=== PATIENT | male | born 1945 | race Caucasian/White ===

== ENCOUNTER → 2016-03-30 | Outpatient (CLI) | payer MEDICARE, OTHER ==
--- NOTE | 2016-03-30 14:55 | FL ---
EXAMINATION TYPE: FL barium swallow w video DATE OF EXAM: 03/30/2016 2:05 PM COMPARISON: NONE HISTORY: Parkinson's, chronic cough TECHNIQUE: Fluoroscopy. FINDINGS: Fluoroscopic guidance was provided for the procedure performed in conjunction with the [facility] pathology department. Please see complete report forthcoming from the Speech Pathology departmen t. Various consistencies from thin liquid to solids were administered. Some minimal transient penetration was present with thin liquids Pooling was within the vallecula. There is some delay in propulsion of the bolus. IMPRESSION: 1. Minimal penetration with thin liquids. No aspiration occurred during the exam. 2. Slow propulsion of the bolus and pooling within the vallecula.
== END | disposition home or self-care (01) ==
LOC: RADFLMAIN 13:42
PROVIDERS: ATTEND Otolaryngology
DX: R13.10 Dysphagia, unspecified (principal)
CPT/HCPCS: 74230

== ENCOUNTER → 2017-01-23 | Outpatient (CLI) | payer MEDICARE, OTHER ==
--- NOTE | 2017-01-23 11:52 | FL ---
EXAMINATION TYPE: FL barium swallow w video DATE OF EXAM: 01/23/2017 MODIFIED SWALLOW / DEGLUTITION STUDY CLINICAL HISTORY: Dysphagia. TECHNIQUE: Deglutition study is performed utilizing thin liquid barium, honey and nectar thick liqui d barium, barium thick applesauce, and barium coated cracker. COMPARISON: None. FINDINGS: The oral and pharyngeal phases show satisfactory initiation and propagation with all modali ties tested. Normal mastication is seen with solid modalities tested. There is no evidence of penet ration or aspiration with any modality tested. Moderate to severe posterior pharyngeal, vallecular an d piriform sinus residue was appreciated with all consistencies other than barium thick applesauce. IMPRESSION: 1. Moderate to severe posterior pharyngeal, vallecular and piriform sinus residuals. 2. No evidence of laryngeal penetration or aspiration. 3. Please refer to speech therapist notes for further details if necessary.
== END | disposition home or self-care (01) ==
LOC: RADFLMAIN 11:05
PROVIDERS: ATTEND Otolaryngology
DX: R13.10 Dysphagia, unspecified (principal); G20 Parkinson's disease
CPT/HCPCS: 74230

== ENCOUNTER 2018-02-20 07:37 | Day surgery (SDC) | payer MEDICARE, OTHER ==
[~2018-02-20 07:37] MED LIST: PREMYELOGRAM MEDICATION REVIEW 1 EACH MISC PO ONE
[2018-02-20] MEDS ORDERED: PREMYELOGRAM MEDICATION REVIEW 1 EACH MISC PO ONE (08:38)
[2018-02-20 08:43] LABS: Mean Platelet Volume 11.2
[2018-02-20 08:56] LABS: Platelet Count 119 k/uL (150-450)
[2018-02-20 09:02] LABS: Prothrombin Time 10.9 sec (9.0-12.0)
== END 2018-02-20 09:50 | disposition home or self-care (01) ==
LOC: RADPROMAIN 07:37
PROVIDERS: ATTEND Physical Medicine & Rehabilitation
DX: M47.817 Spondylosis without myelopathy or radiculopathy, lumbosacral region (principal); Z53.8 Procedure and treatment not carried out for other reasons
CPT/HCPCS: 85049; 85610

== ENCOUNTER 2018-02-22 07:52 | Day surgery (SDC) | payer MEDICARE, OTHER ==
[2018-02-22] MEDS ORDERED: DIAZEPAM 5 MG TAB PO STA (08:49)
[2018-02-22 09:04] VITALS: TEMP 97.5
--- NOTE | 2018-02-22 10:30 | CT ---
EXAMINATION TYPE: CT lumbar spine w con, FL myelogram lumbosacral DATE OF EXAM: 02/22/2018 10:15 AM HISTORY: Lower extremity pain and numbness Informed consent was obtained and all the patient's questions were answered. The L3-L4 level was loc alized under fluoroscopy. Standard sterile technique was utilized as well as appropriate local anest hesia 1% Lidocaine and sodium bicarbonate. Spinal needle was introduced into the thecal sac under fl uoroscopic guidance and 15 cc of Omni 300 was injected. The patient tolerated the procedure well an d left the department in stable condition. CT myelography is to follow. IMPRESSION: Successful myelography lumbar spine EXAMINATION TYPE: CT lumbar spine w con, FL myelogram lumbosacral DATE OF EXAM: 02/22/2018 COMPARISON: None HISTORY: Spondylosis lumbosacral region CT DLP: 1068 mGycm CONTRAST: Unenhanced CT of the lumbar spine is performed with IV Contrast, patient injected with 15 cc mL of Is ovue M300. There is a moderately severe rotoscoliosis convex to the left. L1-L2: Severe disc desiccation with vacuum disks noted. Endplate sclerosis noted. Ventral and dorsal spondylosis. Posterior disc bulge with encapsulating spur resulting in disc endplate complex. There i s a [id number]-gfuborvf central stenosis. L2-L3: There is L2-3 fusion noted. Ventral and dorsal spondylosis. Effacement ventral thecal sac with right lateral recess stenosis and right foraminal encroachment. L3-L4: Moderate disc space narrowing noted with the vacuum disc identified. Posterior disc bulge wit h mild effacement ventral thecal sac. No evidence for disc herniation or protrusion. No central steno sis. Mild right foraminal encroachment. L4-L5: Grade 1 anterolisthesis L4 and L5. Pedicular screws in place. Anterolisthesis measures 6 mm. D istortion of the thecal sac. Lumbar laminectomy changes noted. No evidence for central stenosis. Neur al foramina are patent. L5-S1: Normal disc space height. No disc herniation protrusion or central stenosis. No facet joint arthropathy. No evidence for foraminal encroachment. No paraspinal masses are identified. Lumbar segments are free if fracture. IMPRESSION: 1. Severe multilevel degenerative disc disease and spondylosis with endplate sclerosis. 2. Owyp-oe-ylnlvdpg central stenosis L1-2. Right lateral recess stenosis L2-3. 3. Postoperative changes as noted.
[2018-02-22 11:42] VITALS: RESP 16
[2018-02-22 11:50] VITALS: PULSE 55
[2018-02-22 12:17] VITALS: BP 166/82
== END 2018-02-22 12:17 | disposition home or self-care (01) ==
LOC: RADPROMAIN 07:52
PROVIDERS: ATTEND Physical Medicine & Rehabilitation
DX: M47.817 Spondylosis without myelopathy or radiculopathy, lumbosacral region (principal); M48.061 Spinal stenosis, lumbar region without neurogenic claudication; I10 Essential (primary) hypertension; G20 Parkinson's disease; I51.9 Heart disease, unspecified; Z79.01 Long term (current) use of anticoagulants; Z79.02 Long term (current) use of antithrombotics/antiplatelets; Z79.899 Other long term (current) drug therapy; M96.1 Postlaminectomy syndrome, not elsewhere classified; Z98.1 Arthrodesis status; Z86.718 Personal history of other venous thrombosis and embolism
CPT/HCPCS: 62304; 72132; Q9967

== ENCOUNTER 2018-08-07 10:40 | Day surgery (SDC) | payer MEDICARE, OTHER ==
[2018-07-10 16:01] VITALS: BMI 18.6
[~2018-08-07 10:40] MED LIST changes: +LACTATED RINGERS 1,000 ML IV SCH; -PREMYELOGRAM MEDICATION REVIEW 1 EACH MISC PO ONE
[2018-08-07 11:14] VITALS: RESP 16; TEMP 98.6
[2018-08-07] MEDS ORDERED: LIDOCAINE 1% 20 ML VIAL (10MG/ML) FOR IV START INTRADERMA ONE (11:22)
[2018-08-07] MEDS ORDERED: PROPOFOL 10 MG/ML 20 ML VIAL IV ONE (12:43)
--- NOTE | 2018-08-07 13:03 | P.PCN ---
Date of Procedure: 08/07/18 Procedure(s) Performed: BRIEF HISTORY: Patient is a 73-year-old pleasant white male, scheduled for an elective colonoscopy as a part of screening for colorectal neoplasia. PROCEDURE PERFORMED: Colonoscopy. PREOPERATIVE DIAGNOSIS: Screening for colon cancer. IV sedation per Anesthesia. PROCEDURE: After informed consent was obtained, the patient, was brought into the endoscopy unit. IV sedation was administered by Anesthesia under continuous monitoring. Digital rectal examination was normal. Initially the Olympus CF-160 flexible video colonoscope was then inserted in the rectum, gradually advanced into the cecum without any difficulty. Careful examination was performed as the scope was gradually being withdrawn. Ileocecal valve and the appendiceal orifice were visualized and appeared normal. Prep was fair.. Mucosa of the cecum, ascending colon, transverse colon, descending colon, sigmoid colon, and rectum appeared normal. Retroflexion was performed in the rectum and small internal hemorrhoids were seen. The patient tolerated the procedure well. IMPRESSION: Normal-appearing colon from rectum to cecum with no evidence of colorectal neoplasia. RECOMMENDATIONS: Findings of this examination were discussed with the patient as well as his family. He was advised to have a repeat screening colonoscopy in 10 years.
[2018-08-07 13:25] VITALS: BP 111/58; PULSE 52
== END 2018-08-07 13:56 | disposition home or self-care (01) ==
LOC: ORWHC2ENDO 10:40
PROVIDERS: ATTEND Internal Medicine Gastroenterology
DX: Z12.11 Encounter for screening for malignant neoplasm of colon (principal); K64.8 Other hemorrhoids; I10 Essential (primary) hypertension; G20 Parkinson's disease; Z79.899 Other long term (current) drug therapy; Z79.01 Long term (current) use of anticoagulants; Z79.02 Long term (current) use of antithrombotics/antiplatelets; Z95.810 Presence of automatic (implantable) cardiac defibrillator
CPT/HCPCS: J2704; G0121; 45378

== ENCOUNTER 2018-12-14 13:51 | Inpatient (IN) | payer MEDICARE, OTHER ==
[2018-12-14] MEDS ORDERED: HYDROmorphone 0.5 MG/0.5 ML SYRINGE IVP PRN (14:10)
[2018-12-14] MEDS ORDERED: HYDROcodone/APAP 5-325MG 1 EACH TAB PO PRN (14:10)
[2018-12-14 18:00] LABS: African American GFR (CKD) >90 (>60 ml/min/1.73 sqM); Anion Gap 5 mmol/L; Blood Urea Nitrogen 14 mg/dL (9-20); Calcium 8.7 mg/dL (8.4-10.2); Carbon Dioxide 26 mmol/L (22-30); Chloride 106 mmol/L (98-107); Glucose 109 mg/dL (74-99); Potassium 3.9 mmol/L (3.5-5.1); Sodium 137 mmol/L (137-145)
[2018-12-14 18:02] LABS: INR 1.1 (<1.2); Partial Thromboplastin Time 27.1 sec (22.0-30.0); Prothrombin Time 11.2 sec (9.0-12.0)
[2018-12-14 18:09] LABS: Basophils % (A) 0 %; Eosinophils # (A) 0.2 k/uL (0-0.7); Eosinophils % (A) 2 %; HCT 44.1 % (39.0-53.0); HGB 14.2 gm/dL (13.0-17.5); Lymphocytes # (A) 0.8 k/uL (1.0-4.8); Lymphocytes % (A) 9 %; MCH 32.3 pg (25.0-35.0); MCHC 32.2 g/dL (31.0-37.0); MCV 100.2 fL (80.0-100.0); Mean Platelet Volume 7.4; Monocytes # (A) 0.5 k/uL (0-1.0); Monocytes % (A) 6 %; Neutrophils # (A) 7.3 k/uL (1.3-7.7); Neutrophils % (A) 82 %; Platelet Count 101 k/uL (150-450); RDW 14.4 % (11.5-15.5); WBC 8.9 k/uL (3.8-10.6)
[2018-12-14] MEDS ORDERED: ACETAMINOPHEN TAB 325 MG TAB PO PRN (18:27)
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
[2018-12-14] MEDS: HEPARIN SOD,PORK IN 0.45% NACL 25,000 UNIT in 0.45% NACL 1 250ML.BAG IV SCH (18:58)
[2018-12-14] MEDS: SODIUM CHLORIDE 0.9% 1,000 ML IV SCH (18:59)
[2018-12-14 20:06] LABS: Appearance,Urine Clear (Clear); Bilirubin,Urine Negative (Negative); Blood,Urine Negative (Negative); Color,Urine Yellow; Glucose,Urine (UA) Negative (Negative); Ketones,Urine Negative (Negative); Leukocyte Esterase,Urine Negative (Negative); Nitrite,Urine Negative (Negative); Protein,Urine Negative (Negative); Specific Gravity,Urine 1.007 (1.001-1.035); Urobilinogen,Urine <2.0 mg/dL (<2.0)
[2018-12-14] MEDS: ENTACAPONE 200 MG TAB PO SCH (20:09)
[2018-12-14] MEDS: GLYCOPYRROLATE 1 MG TAB PO SCH (20:09)
[2018-12-14] MEDS: CARBIDOPA-LEVODOPA ER 50-200MG 1 EACH TABLET.ER PO SCH (20:09)
[2018-12-14] MEDS: PRAMIPEXOLE 0.5 MG TAB PO SCH (20:09)
[2018-12-14] MEDS: Rivastigmine Tartrate 1.5 MG Cap PO SCH (20:10)
--- NOTE | 2018-12-14 20:18 | XR ---
EXAMINATION TYPE: XR chest 1V DATE OF EXAM: 12/14/2018 COMPARISON: NONE HISTORY: Preoperative evaluation TECHNIQUE: Single frontal view of the chest is obtained. FINDINGS: There is no focal air space opacity, pleural effusion, or pneumothorax seen. Subsegmental atelectasis at the left lung base. The cardiac silhouette size is within normal limits. Single-chambe r cardiac pacing device with right chest wall Corpak. The osseous structures are intact. IMPRESSION: No acute process.
[2018-12-15] MEDS: ENTACAPONE 200 MG TAB PO SCH ×8 (00:06→20:48)
[2018-12-15] MEDS: PRAMIPEXOLE 0.5 MG TAB PO SCH ×7 (00:06→20:48)
[2018-12-15] MEDS ORDERED: HEPARIN SODIUM,PORCINE 5,000 UNIT/ML 1 ML VIAL IV PRN (02:57)
--- NOTE | 2018-12-15 08:22 | XR ---
EXAMINATION TYPE: XR Hip LT and AP Pelvis , 3 VIEWS DATE OF EXAM ORDERED: 12/15/2018 HISTORY: pain. COMPARISON: None. FINDINGS: There has been a previous interpedicular fusion of the lower lumbar spine. There appears to also been a bony fusion of the lower lumbar spine. Both femoral heads are nonspherical. There is a s ubcapital fracture of the left hip. No definite pelvic fracture is seen. IMPRESSION: 1. SUBCAPITAL FRACTURE OF THE LEFT HIP. 2. FEMOROACETABULAR IMPINGEMENT SYNDROME. 3. POSTSURGICAL CHANGE. CODE A: INITIAL ENCOUNTER FOR CLOSED FRACTURE.
[2018-12-15] MEDS: SODIUM CHLORIDE 0.9% 1,000 ML IV SCH ×2 (08:51→23:01)
[2018-12-15] MEDS: CARBIDOPA-LEVODOPA ER 50-200MG 1 EACH TABLET.ER PO SCH ×2 (08:57→18:04)
[2018-12-15] MEDS: GLYCOPYRROLATE 1 MG TAB PO SCH (08:58)
[2018-12-15] MEDS ORDERED: METOPROLOL SUCCINATE (ER) 25 MG TAB.ER.24H PO SCH (09:00)
[2018-12-15] MEDS ORDERED: LISINOPRIL 20 MG TAB PO SCH (09:00)
[2018-12-15] MEDS ORDERED: ISOSORBIDE MONONITRATE ER 30 MG TAB.ER.24H PO SCH (09:00)
[2018-12-15] MEDS ORDERED: ATORVASTATIN 40 MG TAB PO SCH (09:00)
[2018-12-15] MEDS ORDERED: TAMSULOSIN 0.4 MG CAP.ER.24H PO SCH (09:00)
[2018-12-15] MEDS: Rivastigmine Tartrate 1.5 MG Cap PO SCH (09:00)
--- NOTE | 2018-12-15 09:15 | P.CRDCN ---
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 The patient fell a few days ago without losing his consciousness. He landed over the left hip. No symptoms of chest pain or chest discomfort, heart racing or fluttering, or dizziness around episode. He was seen by orthopedic surgeon yesterday and the plan is to proceed with left hip surgery in the next 24 hours. When I talk to the patient, he is s omewhat poor historian. He stated that he does have coronary artery disease and he underwent stenting with unknown details at this point and that was performed long time ago. He stated that he also does have a device which seems to be an AICD. The patient stated that he underwent in the past despite surgery and that was complicated by cardiac arrest and since then he had an AICD placed in. The patient does follow with a resin shaver out of the town and the details of his medical history are unavailable at this point. He denies any symptoms of chest pain or chest discomfort at this point, shortness of breath, dizziness, or feeling of heart racing or fluttering. No EKG available in the chart and would get an EKG later on today. No cardiac enzymes were checked as well. His blood work overall seems to be unremarkable. The Eliquis was stopped and currently the patient is on heparin IV. The plan is to proceed with surgery in the next 24 hours. Past Medical History Past Medical History: Blood Disorder, Cancer, Deep Vein Thrombosis (DVT), Hyp erlipidemia, Hypertension, Osteoarthritis (OA), Prostate Disorder, Thyroid Disorder, Vascular Disorder Additional Past Medical History / Comment(s): cardiac arrest 2011 post op after back surgery, dvt x2, factor V-clotting disorder, skin cancer to forehead History of Any Multi-Drug Resistant Organisms: None Reported Past Surgical History: AICD, Back Surgery, Heart Catheterization With Stent Additional Past Surgical History / Comment(s): spinal stenosis 3 screws and box, Past Anesthesia/Blood Transfusion Reactions: Previous Problems w/ Anesthesia, Motion Sickness Additional Past Anesthesia/Blood Transfusion Reaction / Comment(s): has blood clot post op after back surgery that caused cardiac arrest(spouse states because they did not use stockings or venodynes) Date of Last Stent Placement:: 05/03/17 Type of Cardiac Device: AICD Device Placement Date:: 2013 Additional Psychological History / Comment(s): dementia - Past Family History Mother Family Medical History: Blood Disorder, Deep Vein Thrombosis (DVT) Additional Family Medical History / Comment(s): factor V Medications and Allergies Home Medications Medication Instructions Recorded Confirmed Type Atorvastatin [Lipitor] 40 mg PO DAILY 02/12/18 12/14/18 History Glycopyrrolate [Robinul] 1 mg PO BID 02/12/18 12/14/18 History Rivastigmine Tartrate 1.5 mg PO BID 02/20/18 12/14/18 History [Rivastigmine] Apixaban [Eliquis] 5 mg PO BID 07/10/18 12/14/18 History Carbidopa-Levodopa ER 50-200Mg 1 tab PO BID 07/10/18 12/14/18 History [Sinemet ER 50-200] Entacapone [Comtan] 200 mg PO Q3HR 07/10/18 12/14/18 History Isosorbide Mononitrate [Isosorbide 30 mg PO QAM 07/10/18 12/14/18 History Mononitrate ER] Pramipexole [Mirapex] 0.5 mg PO Q4HR 07/10/18 12/14/18 History tiZANidine [Zanaflex] 2 mg PO BID@0600,1400 07/10/18 12/14/18 History Metoprolol Succinate (ER) [Toprol 25 mg PO DAILY 12/14/18 12/14/18 History Xl] Ramipril 10 mg PO DAILY 12/14/18 12/14/18 History Tamsulosin HCl [Flomax] 0.4 mg PO DAILY 12/14/18 12/14/18 History predniSONE See Taper PO DAILY 12/14/18 12/14/18 History Allergies Allergy/AdvReac Type Severity Reaction Status Date / Time No Known Allergies Allergy Verified 12/14/18 17:52 Physical Exam Vitals: Vital Signs Temp Pulse Resp BP Pulse Ox 12/15/18 01:27 98.0 F 60 18 163/90 97 12/14/18 19:32 98.5 F 60 14 157/83 95 12/14/18 17:05 98.2 F 60 17 176/90 98 Intake and Output 12/14/18 12/15/18 12/15/18 22:59 06:59 14:59 Intake Total 118 64.452 Output Total 450 Balance 118 -385.548 Intake: Intake, IV Titration 64.452 Amount Heparin Sod,Pork in 0.45% 64.452 NaCl 25,000 unit In 0.45 % NaCl 1 250ml.bag @ 12 UNITS/KG/HR 7.86 mls/hr IV .Q24H [facility] Rx#: [id number] Oral 118 Output: Urine 450 Other: Voiding Method Urinal Weight 65.503 kg - Constitutional General appearance: no acute distress - Respiratory Respiratory: bilateral: CTA - Cardiovascular Rhythm: regular Heart sounds: normal: S1, S2 Results 12/14/18 17:32 12/14/18 17:32 Coagulation 12/14/18 12/15/18 12/15/18 Range/Units 17:32 01:31 08:30 PT 11.2 (9.0-12.0) sec APTT 27.1 37.5 H 54.6 H (22.0-30.0) sec CBC 12/14/18 Range/Units 17:32 WBC 8.9 (3.8-10.6) k/uL RBC 4.40 (4.30-5.90) m/uL Hgb 14.2 (13.0-17.5) gm/dL Hct 44.1 (39.0-53.0) % Plt Count 101 L (150-450) k/uL Comprehensive Metabolic Panel 12/14/18 Range/Units 17:32 Sodium 137 (137-145) mmol/L Potassium 3.9 (3.5-5.1) mmol/L Chloride 106 (98-107) mmol/L Carbon Dioxide 26 (22-30) mmol/L BUN 14 (9-20) mg/dL Creatinine 0.53 L (0.66-1.25) mg/dL Glucose 109 H (74-99) mg/dL Calcium 8.7 (8.4-10.2) mg/dL Current Medications Generic Name Dose Route Start Last Admin Trade Name Freq PRN Reason Stop Dose Admin Acetaminophen 650 mg 12/14/18 18:27 Tylenol Tab PO Q4HR PRN Pain Hydrocodone Bitart/Acetaminophen 1 each 12/14/18 14:10 [place] 5-325 PO Q4HR PRN Mild Pain Hydrocodone Bitart/Acetaminophen 2 each 12/14/18 14:10 [place] 5-325 PO Q4HR PRN Moderate Pain Atorvastatin Calcium 40 mg 12/15/18 09:00 12/15/18 08:56 Lipitor PO 40 mg DAILY MARY Administration Carbidopa/Levodopa 1 each 12/14/18 21:00 12/15/18 08:57 Sinemet Er 50-200 PO 1 each BID MARY Administration Entacapone 200 mg 12/14/18 21:00 12/15/18 03:18 Comtan PO Not Given Q3HR MARY Glycopyrrolate 1 mg 12/14/18 21:00 12/15/18 08:58 Robinul PO 1 mg BID MARY Administration Heparin Sodium (Porcine) 0 unit 12/15/18 02:57 12/15/18 03:09 Heparin IV 3,250 unit PER PROTOCOL PRN Administration Low PTT Protocol Hydromorphone HCl 0.5 mg 12/14/18 14:10 Dilaudid IVP Q4HR PRN Moderate Pain Sodium Chloride 1,000 mls @ 65 mls/hr 12/14/18 14:15 12/15/18 08:51 Saline 0.9% IV Not Given .[id number] MARY Heparin Sodium/Sodium Chloride 250 mls @ 7.86 mls/hr 12/14/18 18:30 12/15/18 03:10 25,000 unit/ Sodium Chloride IV 15 units/kg/hr .Q24H MARY 9.825 mls/hr Titration Protocol 12 UNITS/KG/HR Isosorbide Mononitrate 30 mg 12/15/18 09:00 12/15/18 08:56 Imdur PO 30 mg QAM MARY Administration Lisinopril 40 mg 12/15/18 09:00 12/15/18 08:56 Zestril PO 40 mg DAILY MARY Administration Metoprolol Succinate 25 mg 12/15/18 09:00 12/15/18 08:56 Toprol Xl PO 25 mg DAILY MARY Administration Rivastigmine 1.5 mg 12/14/18 21:00 12/15/18 09:00 Tartrate 1.5 Mg Cap PO 1.5 mg BID MARY Administration Pramipexole Dihydrochloride 0.5 mg 12/14/18 20:00 12/15/18 08:58 Mirapex PO 0.5 mg Q4HR MARY Administration Tamsulosin HCl 0.4 mg 12/15/18 09:00 12/15/18 08:56 Flomax PO 0.4 mg DAILY MARY Administration Tizanidine HCl 2 mg 12/15/18 06:00 12/15/18 08:59 Zanaflex PO 2 mg BID@0600,1400 MARY Administration Intake and Output 12/14/18 12/15/18 12/15/18 22:59 06:59 14:59 Intake Total 118 64.452 Output Total 450 Balance 118 -385.548 Intake: Intake, IV Titration 64.452 Amount Heparin Sod,Pork in 0.45% 64.452 NaCl 25,000 unit In 0.45 % NaCl 1 250ml.bag @ 12 UNITS/KG/HR 7.86 mls/hr IV .Q24H MARY Rx#: [id number] Oral 118 Output: Urine 450 Other: Voiding Method Urinal Weight 65.503 kg 12/14/18 17:32 12/14/18 17:32 Assessment and Plan Assessment: Assessment #1 status post fall with left hip fracture #2 history of coronary artery disease and prior angioplasty and stenting with unknown details #3 history of recurrent DVT #4 factor V Leiden deficiency #5 status post AICD for history of "cardiac arrest" #6 multiple comorbid conditions Plan #1 agree about keeping the patient on heparin IV at this point until he goes for surgery #2 continue the current medical regimen #3 obtain an echocardiogram to establish LV function. I would hold on any surg ernie at this point daily at least have an idea about the ejection fraction #4 rule out acute coronary event. I will obtain serial cardiac enzymes #5 obtain the previous medical records from his prior resin shaver #6 follow-up with the patient Thank you for allowing us participate in his care
--- NOTE | 2018-12-15 09:51 | P.HPOR ---
History of Present Illness H&P Date: 12/15/18 This is a 73-year-old male who was transferred from [facility] for left hip fracture. Patient is seen and evaluated at bedside. Patient is a poor historian and there is no family present in the room. Patient's past medical history significant for factor V Leiden, Parkinson's disease, dementia, history of skin cancer, history of DVT 2, history of cardiac arrest, hypertension, hyperlipidemia, osteoarthritis, prostate disorder and thyroid disorder. Patient normally takes Eliquis twice a day, but this has been held since , per the patient's chart. The patient has a history of a fall on 12/12/2018 and was admitted to [facility] for left hip fracture. Patient denies any pain in his left hip this morning. Patient denies any fever/chills, numbness, weakness, tingling, abdominal pain, shortness of breath or chest pain. Review of Systems See HPI. Past Medical History Past Medical History: Blood Disorder, Cancer, Deep Vein Thrombosis (DVT), Hyperlipidemia, Hypertension, Osteoarthritis (OA), Prostate Disorder, Thyroid Disorder, Vascular Disorder Additional Past Medical History / Comment(s): cardiac arrest 2011 post op after back surgery, dvt x2, factor V-clotting disorder, skin cancer to forehead History of Any Multi-Drug Resistant Organisms: None Reported Past Surgical History: AICD, Back Surgery, Heart Catheterization With Stent Additional Past Surgical History / Comment(s): spinal stenosis 3 screws and box, Past Anesthesia/Blood Transfusion Reactions: Previous Problems w/ Anesthesia, Motion Sickness Additional Past Anesthesia/Blood Transfusion Reaction / Comment(s): has blood clot post op after back surgery that caused cardiac arrest(spouse states because they did not use stockings or venodynes) Date of Last Stent Placement:: 05/03/17 Type of Cardiac Device: AICD Device Placement Date:: 2013 Additional Psychological History / Comment(s): dementia - Past Family History Mother Family Medical History: Blood Disorder, Deep Vein Thrombosis (DVT) Additional Family Medical History / Comment(s): factor V Medications and Allergies Home Medications Medication Instructions Recorded Confirmed Type Atorvastatin [Lipitor] 40 mg PO DAILY 02/12/18 12/14/18 History Glycopyrrolate [Robinul] 1 mg PO BID 02/12/18 12/14/18 History Rivastigmine Tartrate 1.5 mg PO BID 02/20/18 12/14/18 History [Rivastigmine] Apixaban [Eliquis] 5 mg PO BID 07/10/18 12/14/18 History Carbidopa-Levodopa ER 50-200Mg 1 tab PO BID 07/10/18 12/14/18 History [Sinemet ER 50-200] Entacapone [Comtan] 200 mg PO Q3HR 07/10/18 12/14/18 History Isosorbide Mononitrate [Isosorbide 30 mg PO QAM 07/10/18 12/14/18 History Mononitrate ER] Pramipexole [Mirapex] 0.5 mg PO Q4HR 07/10/18 12/14/18 History tiZANidine [Zanaflex] 2 mg PO BID@0600,1400 07/10/18 12/14/18 History Metoprolol Succinate (ER) [Toprol 25 mg PO DAILY 12/14/18 12/14/18 History Xl] Ramipril 10 mg PO DAILY 12/14/18 12/14/18 History Tamsulosin HCl [Flomax] 0.4 mg PO DAILY 12/14/18 12/14/18 History predniSONE See Taper PO DAILY 12/14/18 12/14/18 History Allergies Allergy/AdvReac Type Severity Reaction Status Date / Time No Known Allergies Allergy Verified 12/14/18 17:52 Physical Examination On exam patient is resting comfortably in bed in no acute distress. There is no deformity of the left lower extremity. Skin is intact and there is no erythema or ecchymosis. Range of motion of the left lower extremity is limited due to pain and injury. Patient is no pain with range of motion of the right lower extremity. Calves are soft and nontender to palpation. Dorsalis pedis pulses are 2+ bilaterally. Sensation intact. Neurovascular status circulatory status are intact. Exams of the head, neck and bilateral upper extremities are within normal limits. Results X-rays of the left hip and pelvis dated 12/15/2018 show a fracture of the left femoral neck. - Labs Labs: Abnormal Lab Results - Last 24 Hours (Table) 12/14/18 12/14/18 12/15/18 Range/Units 17:32 17:32 01:31 MCV 100.2 H (80.0-100.0) fL Plt Count 101 L (150-450) k/uL Lymphocytes # 0.8 L (1.0-4.8) k/uL APTT 37.5 H (22.0-30.0) sec Creatinine 0.53 L (0.66-1.25) mg/dL Glucose 109 H (74-99) mg/dL H & H 12/14/18 Range/Units 17:32 Hgb 14.2 (13.0-17.5) gm/dL Hct 44.1 (39.0-53.0) % Coagulation 12/14/18 Range/Units 17:32 INR 1.1 (<1.2) Result Diagrams: 12/14/18 17:32 12/14/18 17:32 Assessment and Plan (1) Closed left hip fracture Current Visit: Yes Status: Acute Code(s): S72.002A - FRACTURE OF UNSP PART OF NECK OF LEFT FEMUR, INIT SNOMED Code(s): 962424549 (2) Factor V Leiden Current Visit: Yes Status: Acute Code(s): D68.51 - ACTIVATED PROTEIN C RESISTANCE SNOMED Code(s): 333633567 (3) Parkinsons disease Current Visit: Yes Status: Acute Code(s): G20 - PARKINSON'S DISEASE SNOMED Code(s): 70036807 Plan: 1. X-rays are reviewed showing left femoral neck fracture. 2. Patient is currently on a heparin drip for history of factor V Leiden. 3. Appreciate input from internal medicine, cardiology and hematology. 4. Continue pain control. 5. Nonweightbearing to the lower extremity. 6. Planning for left hip hemiarthroplasty pending medical clearance and patient consent.
[2018-12-15 10:16] LABS: Creatine Kinase MB 1.2 ng/mL (0.0-2.4)
--- NOTE | 2018-12-15 11:12 | P.PN ---
Progress Note - Text Progress Note Date: 12/15/18 Thanks for the consult. Full consult to be dictated Factor 5 leiden mutation DVT LLE 10 yrs ago On chronic AC, with warfarin, then with Eliquis Left hip fx, need for surgery Agree with IV heparin in this setting. Continue till about 2-4 hrs prior to surgery Post surgery use SCDs. Resume Eliquis as son as Ok with Ortho
[2018-12-15] MEDS ORDERED: CARBIDOPA-LEVODOPA 25-100 MG 1 EACH TAB PO SCH (12:00)
[2018-12-15] MEDS: CARBIDOPA-LEVODOPA 25-100 MG 1 EACH TAB PO SCH ×2 (13:28→15:30)
[2018-12-15] MEDS ORDERED: ENTACAPONE 200 MG TAB PO SCH (13:32)
[2018-12-15 14:46] LABS: Creatine Kinase 27 U/L (55-170)
[2018-12-15 14:53] LABS: Creatine Kinase MB 1.2 ng/mL (0.0-2.4); Troponin I <0.012 ng/mL (0.000-0.034)
--- NOTE | 2018-12-15 16:47 | P.PN ---
Subjective Progress Note Date: 12/15/18 Principal diagnosis: Follow-up for hip fracture Patient denied having any pain in the moment. No overnight events. No shortness of breath, nausea or vomiting. Objective - Vital Signs Vital signs: Vital Signs Temp 99.7 F H 12/15/18 14:31 Pulse 60 12/15/18 14:31 Resp 16 12/15/18 14:31 BP 96/60 12/15/18 14:31 Pulse Ox 97 12/15/18 14:31 Intake & Output 12/14/18 12/15/18 12/15/18 18:59 06:59 18:59 Intake Total 118 64.452 296 Output Total 450 250 Balance 118 -385.548 46 Weight 65.503 kg Intake: Intake, IV Titration 64.452 Amount Heparin Sod,Pork in 0.45% 64.452 NaCl 25,000 unit In 0.45 % NaCl 1 250ml.bag @ 12 UNITS/KG/HR 7.86 mls/hr IV .Q24H [facility] Rx#: [id number] Oral 118 296 Output: Urine 450 250 Other: Voiding Method Urinal Urinal - Exam Constitutional: No acute distress, conversant, pleasant Eyes:Anicteric sclerae, moist conjunctiva, no lid-lag, PERRLA, ENMT: Oropharynx clear, no erythema, exudates Neck: Supple, FROM, no masses, or JVD, No carotid bruits, No thyromegaly Lungs: Clear to auscultation, Clear to percussion, Normal respiratory effort, no accessory muscle use Cardiovascular: Heart regular in rate and rhythm, No murmurs, gallops, or rubs, No peripheral edema Abdominal: Soft, Nontender, no guarding, rebound or rigidity, Normoactive bowel sounds, No hepatomegaly, No splenomegaly, No palpable mass Skin: Normal temperature, tone, texture, turgor, no induration, No subcutaneous nodules, No rash, lesions, No ulcers Extremities: Motion limited in the left hip secondary to extreme pain. No digital cyanosis, No clubbing, Pedal pulses intact and symmetrical, Radial pulses intact and symmetrical, No calf tenderness Psychiatric: Alert and oriented to person, place and time, appropriate affect, intact judgement Neuro: Muscles Strength 5/5 in all 4 extremities, Sensation to light touch grossly present throughout, Cranial nerves II-XII grossly intact, no focal sensory deficits - Labs CBC & Chem 7: 12/14/18 17:32 12/14/18 17:32 Labs: Abnormal Lab Results - Last 24 Hours (Table) 12/14/18 12/14/18 12/15/18 Range/Units 17:32 17:32 01:31 MCV 100.2 H (80.0-100.0) fL Plt Count 101 L (150-450) k/uL Lymphocytes # 0.8 L (1.0-4.8) k/uL APTT 37.5 H (22.0-30.0) sec Creatinine 0.53 L (0.66-1.25) mg/dL Glucose 109 H (74-99) mg/dL Total Creatine Kinase (55-170) U/L 12/15/18 12/15/18 12/15/18 Range/Units 08:30 08:30 14:09 MCV (80.0-100.0) fL Plt Count (150-450) k/uL Lymphocytes # (1.0-4.8) k/uL APTT 54.6 H (22.0-30.0) sec Creatinine (0.66-1.25) mg/dL Glucose (74-99) mg/dL Total Creatine Kinase 28 L 27 L (55-170) U/L Assessment and Plan Plan: Acute left hip fracture Management per orthopedics Pain control with [place] when necessary Going for left hip surgery Sunday Preoperative evaluation Seen by cardiology Recommending echocardiogram, pending History of factor V Leiden deficiency previously on DOAC with Eliquis over the last 6 months after previously being on Coumadin Seen by cardiology as well as hematology, both advising heparin drip, heparin will be held few hours before surgery. Anticoagulation therapy to resume after surgery Chronic Hyperlipidemia, Hypertension, Osteoarthritis (OA) All stable Resume meds CODE STATUS: Full code Discussed care with patient Surrogate decision-maker: Anticipated discharge: 3 days Prophylaxis: Heparin
[2018-12-15] MEDS: RIVASTIGMINE TARTRATE 1.5 MG PO SCH (18:04)
[2018-12-15] MEDS: HEPARIN SOD,PORK IN 0.45% NACL 25,000 UNIT in 0.45% NACL 1 250ML.BAG IV SCH (20:47)
[2018-12-15] MEDS: MELATONIN 3 MG TABLET PO SCH (20:48)
[2018-12-15 21:10] LABS: Creatine Kinase 34 U/L (55-170)
[2018-12-15 21:23] LABS: Creatine Kinase MB 1.3 ng/mL (0.0-2.4); Troponin I <0.012 ng/mL (0.000-0.034)
--- NOTE | 2018-12-15 21:46 | P.CONS ---
History of Present Illness - Reason for Consult Consult date: 12/15/18 Hypercoagulable State, Anticoagulation Recs - History of Present Illness The patient is a 73-year-old white male, with a known history of Parkinson's disease and some dementia. The patient had had a fall from his scooter, on 12/12/18. He had developed pain to his left hip that was worse on weightbearing. Due to persistence of the symptoms he presented to [facility] where x-rays revealed proximal femoral fracture. He was therefore referred here for further evaluation and recommendations X-rays year confirmed subcapital femoral fracture. The patient has a known history of factor V Leiden deficiency and DVTs in the past. He was on eliquis at home, which was stopped on admission. After tr ansferred here he has been placed on IV heparin. Consult was placed for further evaluation and recommendations. Despite the documented history of dementia the patient was able to give a fairly reasonable account of his hypercoagulable condition. He stated that he had had DVTs 2 in the left lower extremity more than 10 years ago. He had been on warfarin, and was diagnosed factor V Leiden mutation. He was subsequently changed to eliquis. He denied any adverse events related to anticoagulation Review of Systems Constitutional: Denies chills, Denies fever Eyes: denies blurred vision, denies pain Ears: deny: decreased hearing, ear discharge, earache, tinnitus Ears, nose, mouth and throat: Denies headache, Denies sore throat Cardiovascular: Reports decreased exercise tolerance (History of possible CAD, and AICD) Respiratory: Denies cough Gastrointestinal: Denies abdominal pain, Denies diarrhea, Denies nausea, Denies vomiting Genitourinary: Reports urinary frequency Musculoskeletal: Reports as per HPI, Reports gait dysfunction, Reports muscle weakness Musculoskeletal: left: hip pain Integumentary: Denies pruritus, Denies rash Neurological: Reports as per HPI, Reports memory loss, Reports spasticity, Reports weakness Psychiatric: Reports memory loss Endocrine: Denies fatigue, Denies weight change Hematologic/Lymphatic: Reports as per HPI Past Medical History Past Medical History: Blood Disorder, Cancer, Deep Vein Thrombosis (DVT), Hy perlipidemia, Hypertension, Osteoarthritis (OA), Prostate Disorder, Thyroid Disorder, Vascular Disorder Additional Past Medical History / Comment(s): cardiac arrest 2011 post op after back surgery, dvt x2, factor V-clotting disorder, skin cancer to forehead History of Any Multi-Drug Resistant Organisms: None Reported Past Surgical History: AICD, Back Surgery, Heart Catheterization With Stent Additional Past Surgical History / Comment(s): spinal stenosis 3 screws and box, Past Anesthesia/Blood Transfusion Reactions: Previous Problems w/ Anesthesia, Motion Sickness Additional Past Anesthesia/Blood Transfusion Reaction / Comm: has blood clot pos t op after back surgery that caused cardiac arrest(spouse states because they did not use stockings or venodynes) Date of Last Stent Placement:: 05/03/17 Type of Cardiac Device: AICD Device Placement Date:: 2013 Additional Psychological History / Comment(s): dementia - Past Family History Mother Family Medical History: Blood Disorder, Deep Vein Thrombosis (DVT) Additional Family Medical History / Comment(s): factor V Medications and Allergies Home Medications Medication Instructions Recorded Confirmed Type Atorvastatin [Lipitor] 40 mg PO DAILY 02/12/18 12/14/18 History Glycopyrrolate [Robinul] 1 mg PO BID 02/12/18 12/14/18 History Rivastigmine Tartrate 1.5 mg PO BID 02/20/18 12/14/18 History [Rivastigmine] Apixaban [Eliquis] 5 mg PO BID 07/10/18 12/14/18 History Carbidopa-Levodopa ER 50-200Mg 1 tab PO BID 07/10/18 12/14/18 History [Sinemet ER 50-200] Entacapone [Comtan] 200 mg PO Q3HR 07/10/18 12/14/18 History Isosorbide Mononitrate [Isosorbide 30 mg PO QAM 07/10/18 12/14/18 History Mononitrate ER] Pramipexole [Mirapex] 0.5 mg PO Q4HR 07/10/18 12/14/18 History tiZANidine [Zanaflex] 2 mg PO BID@0600,1400 07/10/18 12/14/18 History Metoprolol Succinate (ER) [Toprol 25 mg PO DAILY 12/14/18 12/14/18 History Xl] Ramipril 10 mg PO DAILY 12/14/18 12/14/18 History Tamsulosin HCl [Flomax] 0.4 mg PO DAILY 12/14/18 12/14/18 History predniSONE See Taper PO DAILY 12/14/18 12/14/18 History Allergies Allergy/AdvReac Type Severity Reaction Status Date / Time No Known Allergies Allergy Verified 12/14/18 17:52 Physical Exam Vitals: Vital Signs Temp Pulse Resp BP Pulse Ox 12/15/18 19:49 98.7 F 60 19 91/52 97 12/15/18 14:31 99.7 F H 60 16 96/60 97 12/15/18 10:09 98.9 F 12/15/18 08:00 60 18 12/15/18 01:27 98.0 F 60 18 163/90 97 Intake and Output 12/15/18 12/15/18 12/15/18 06:59 14:59 22:59 Intake Total 64.452 296 173.084 Output Total 450 250 350 Balance -385.548 46 -176.916 Intake: Intake, IV Titration 64.452 173.084 Amount Heparin Sod,Pork in 0.45% 64.452 173.084 NaCl 25,000 unit In 0.45 % NaCl 1 250ml.bag @ 12 UNITS/KG/HR 7.86 mls/hr IV .Q24H [facility] Rx#: [id number] Oral 296 Output: Urine 450 250 350 Other: Voiding Method Urinal Urinal # Voids 2 - Constitutional General appearance: no acute distress - EENT Eyes: EOMI, PERRLA ENT: hearing grossly normal, normal oropharynx - Neck Neck: no lymphadenopathy Thyroid: bilateral: normal size - Respiratory Respiratory: bilateral: CTA - Cardiovascular Rhythm: regular Heart sounds: normal: S1, S2 - Gastrointestinal General gastrointestinal: normal bowel sounds, soft - Integumentary Integumentary: normal - Neurologic Neurologic: CNII-XII intact - Musculoskeletal Musculoskeletal: generalized weakness, strength equal bilaterally - Psychiatric While recall is somewhat reasonable regarding his hematologic history, he still has significant gaps, overall recall is diminished Psychiatric: A&O x's 3, appropriate affect Results CBC & Chem 7: 12/14/18 17:32 12/14/18 17:32 Labs: Abnormal Lab Results - Last 24 Hours (Table) 12/15/18 12/15/18 12/15/18 Range/Units 01:31 08:30 08:30 APTT 37.5 H 54.6 H (22.0-30.0) sec Total Creatine Kinase 28 L (55-170) U/L 12/15/18 12/15/18 Range/Units 14:09 20:31 APTT (22.0-30.0) sec Total Creatine Kinase 27 L 34 L (55-170) U/L Comments: Hip x-ray report reviewed Chest x-ray: report reviewed Assessment and Plan (1) Factor V Leiden Narrative/Plan: The patient has a known history of factor V Leiden mutation and has had DVTs in the past. He has not had any event for many years, since being on anticoagulation. He is also tolerated anticoagulation well. This current event and proposed surgery, he is obviously at increased risk for postop thrombosis. At this time eliquis has been stopped, and the patient has been placed on IV heparin is quite reasonable, given its shorter half life, and easy reversibility if needed. I would recommend continuing IV heparin up to 2-4 hours prior to surgery. Postsurgery the patient should be started back on eliquis at the same dose, that is 5 mg by mouth twice a day, as soon as that is okay with surgery. Current Visit: Yes Status: Acute Code(s): D68.51 - ACTIVATED PROTEIN C RESISTANCE SNOMED Code(s): 995906717 Plan: Defer to the admitting service and other consultants for management of his other medical problems
[2018-12-16] MEDS ORDERED: ENTACAPONE 200 MG TAB PO SCH (06:00)
[2018-12-16] MEDS: CARBIDOPA-LEVODOPA 25-100 MG 1 EACH TAB PO SCH ×4 (06:01→15:06)
[2018-12-16] MEDS: CARBIDOPA-LEVODOPA ER 50-200MG 1 EACH TABLET.ER PO SCH ×2 (06:02→19:43)
[2018-12-16] MEDS: ISOSORBIDE MONONITRATE ER 30 MG TAB.ER.24H PO SCH (06:02)
[2018-12-16] MEDS: ENTACAPONE 200 MG TAB PO SCH ×6 (06:02→22:17)
[2018-12-16] MEDS: PRAMIPEXOLE 0.5 MG TAB PO SCH ×6 (06:03→22:18)
[2018-12-16] MEDS: METOPROLOL SUCCINATE (ER) 25 MG TAB.ER.24H PO SCH (06:03)
[2018-12-16] MEDS: SODIUM CHLORIDE 0.9% 1,000 ML IV SCH ×3 (06:07→19:49)
[2018-12-16] MEDS: GLYCOPYRROLATE 1 MG TAB PO SCH (06:51)
[2018-12-16] MEDS: LISINOPRIL 20 MG TAB PO SCH (06:51)
[2018-12-16] MEDS: RIVASTIGMINE TARTRATE 1.5 MG PO SCH ×2 (06:52→22:17)
--- NOTE | 2018-12-16 08:27 | P.PN ---
Subjective Progress Note Date: 12/16/18 This is a 72-year-old male who is admitted for left hip fracture. Patient is seen and evaluated at bedside. Patient had an echocardiogram this morning per cardiology, results are pending. Patient's past medical history is significant for factor V Leiden with history of DVTs. Patient has been evaluated by hematology and is currently on a heparin drip. Patient states that the pain in this left hip is well controlled. Patient denies any new symptoms or complaints today. Patient denies any fever/chills, numbness, weakness, tingling, abdominal pain, shortness of breath or chest pain. Objective - Vital Signs Vital signs: Vital Signs Temp 98.4 F 12/16/18 06:43 Pulse 53 L 12/16/18 06:43 Resp 15 12/16/18 06:43 BP 138/74 12/16/18 06:43 Pulse Ox 97 12/16/18 06:43 Intake & Output 12/15/18 12/16/18 12/16/18 18:59 06:59 18:59 Intake Total 296 173.084 Output Total 250 350 Balance 46 -176.916 Intake: Intake, IV Titration 173.084 Amount Heparin Sod,Pork in 0.45% 173.084 NaCl 25,000 unit In 0.45 % NaCl 1 250ml.bag @ 12 UNITS/KG/HR 7.86 mls/hr IV .Q24H [facility] Rx#: [id number] Oral 296 Output: Urine 250 350 Other: Voiding Method Urinal Urinal Urinal # Voids 2 - Exam On exam patient is resting comfortably in bed. Patient is alert and oriented 3. The left lower extremity is warm and well perfused. Sensation intact. Neurovascular status and circulatory status are intact. - Labs CBC & Chem 7: 12/14/18 17:32 12/14/18 17:32 Labs: Abnormal Lab Results - Last 24 Hours (Table) 12/15/18 12/15/18 12/15/18 Range/Units 08:30 08:30 14:09 APTT 54.6 H (22.0-30.0) sec Total Creatine Kinase 28 L 27 L (55-170) U/L 12/15/18 Range/Units 20:31 APTT (22.0-30.0) sec Total Creatine Kinase 34 L (55-170) U/L Assessment and Plan (1) Closed left hip fracture Current Visit: Yes Status: Acute Code(s): S72.002A - FRACTURE OF UNSP PART OF NECK OF LEFT FEMUR, INIT SNOMED Code(s): 181255351 (2) Factor V Leiden Current Visit: Yes Status: Acute Code(s): D68.51 - ACTIVATED PROTEIN C RESISTANCE SNOMED Code(s): 312818602 (3) Parkinsons disease Current Visit: Yes Status: Acute Code(s): G20 - PARKINSON'S DISEASE SNOMED Code(s): 82913524 Plan: 1. X-rays are reviewed showing left femoral neck fracture. 2. Patient is currently on a heparin drip for history of factor V Leiden. Heparin is to be stopped 2-4 hours prior to surgery, per hematology. Patient is to resume Eliquis postoperatively. 3. Appreciate input from internal medicine, cardiology and hematology. Patient is awaiting cardiac clearance. Patient had an echocardiogram done this morning. 4. Continue pain control. 5. Nonweightbearing to the lower extremity. 6. Planning for left hip hemiarthroplasty pending medical clearance and patient consent.
--- NOTE | 2018-12-16 10:21 | ECHOF ---
Referral Reason:AICD MEASUREMENTS -------- HEIGHT: 180.3 cm WEIGHT: 65.3 kg BP: 145/92 RVIDd: 4.6 cm (< 3.3) IVSd: 1.5 cm (0.6 - 1.1) LVIDd: 4.3 cm (3.9 - 5.3) LVPWd: 1.7 cm (0.6 - 1.1) IVSs: 1.8 cm LVIDs: 3.3 cm LVPWs: 1.7 cm LAESV Index (A-L): 26.34 ml/m Ao Diam: 3.4 cm (2.0 - 3.7) AV Cusp: 1.0 cm (1.5 - 2.6) AV maxP.25 mmHg AV meanP.31 mmHg RAP: 5.00 mmHg RVSP: 31.36 mmHg FINDINGS -------- Sinus rhythm. This was a technically difficult study with suboptimal views. Pt. not able to turn due to pain. L umason was given The left ventricular size is normal. There is moderate concentric left ventricular hypertrophy. O verall left ventricular systolic function is mildly impaired with, an EF between 45 - 50 %. Apical anterior LV wall motion is hypokinetic. Apical lateral LV wall motion is hypokinetic. Apical in ferior LV wall motion is hypokinetic. Apical septum LV wall motion is hypokinetic. The right ventricle is severely enlarged. LA is severely dilated >40 ml/m2 The right atrium is mildly enlarged. Interatrial and interventricular septum intact. There is moderate to severe aortic valve sclerosis. There is no evidence of aortic regurgitation. There is no evidence of aortic stenosis. Mild mitral annular calcification present. There is trace to mild mitral regurgitation. Mild tricuspid regurgitation present. There is no evidence of pulmonary hypertension. The right v entricular systolic pressure, as measured by Doppler, is 31.36mmHg. The aortic root size is normal. IVC Not well visulized. There is no pericardial effusion. CONCLUSIONS -------- 1. Sinus rhythm. 2. This was a technically difficult study with suboptimal views. 3. Pt. not able to turn due to pain. 4. Lumason was given 5. The left ventricular size is normal. 6. There is moderate concentric left ventricular hypertrophy. 7. Apical anterior LV wall motion is hypokinetic. 8. Apical lateral LV wall motion is hypokinetic. 9. Apical inferior LV wall motion is hypokinetic. 10. Apical septum LV wall motion is hypokinetic. 11. The right ventricle is severely enlarged. 12. LA is severely dilated >40 ml/m2 13. The right atrium is mildly enlarged. 14. Interatrial and interventricular septum intact. 15. There is moderate to severe aortic valve sclerosis. 16. There is no evidence of aortic regurgitation. 17. There is no evidence of aortic stenosis. 18. Mild mitral annular calcification present. 19. There is trace to mild mitral regurgitation. 20. Mild tricuspid regurgitation present. 21. There is no evidence of pulmonary hypertension. 22. The right ventricular systolic pressure, as measured by Doppler, is 31.36mmHg. 23. The aortic root size is normal. 24. IVC Not well visulized. 25. There is no pericardial effusion. HUMAN FACTORS ADVISOR LEAD: Carli Gordon RDCS
--- NOTE | 2018-12-16 10:54 | P.PN ---
Subjective This is a pleasant 75-year-old male past medical history significant for coronary artery disease with prior cardiac arrest status post stent placement to the proximal LAD in 2016, ischemic cardiomyopathy, chronic systolic heart failure, paroxysmal atrial fibrillation, hypertension, dyslipidemia, Parkinson's disease, ventricular tachycardia, bradycardia and single-chamber [facility] AICD placement 2012. He follows with Dr. Mcmanus. We were asked to see him for pre-op recommendations. He suffered a fall and subsequent left hip fracture. Office records reviewed from his primary product applications scientist. He underwent a stress test 11/14/2018 was negative for reversible ischemia with a fixed defect inferiorly-apical with EF 61%. Most recent catheterization 06/2018 showed patent proximal LAD, mid segment ability and proximal segment of the posterior descending branch with mild eccentric narrowing. The patient is seen and examined lying flat in bed in no acute distress. He denies symptoms of chest discomfort, shortness of breath, dizziness or palpitations. Blood pressure 138/74 heart rate 53 afebrile maintaining oxygen saturation on room air. Laboratory data reviewed, cardiac enzymes negative 3. GENERAL: Well-appearing, well-nourished and in no acute distress. NECK: Supple without JVD or thyromegaly. LUNGS: Breath sounds clear to auscultation bilaterally. Respiration equal and unlabored. No wheezes, rales or rhonchi. HEART: Regular rate and rhythm with systolic ejection murmur at the left sternal border, no rubs or gallops. S1 and S2 heard. EXTREMITIES: Normal range of motion, no edema. No clubbing or cyanosis. Peripheral pulses intact. ASSESSMENT Closed left hip fracture status post fall History of factor V Leiden Paroxysmal atrial fibrillation on long-term anticoagulation History of coronary artery disease status post stent placement Ischemic cardiomyopathy status post AICD placement History of ventricular tachycardia and cardiac arrest in the setting of an acute myocardial infarction Hypertension Dyslipidemia Parkinson's disease Chronic systolic heart failure, currently euvolemic PLAN Clinically the patient is euvolemic with no symptoms of angina. Records reviewed from his primary product applications scientist revealing he had a normal stress test last month. Echocardiogram has been reviewed by Dr. Mae revealing mildly impaired LV systolic function. He has an increased risk to undergo surgical intervention secondary to multiple comorbid conditions however there is no absolute contraindication. From a cardiac perspective heparin can be discontinued and Eliquis should be resumed after surgery per orthopedics. Re commend cautious fluid administration intraoperatively and continuing beta blockers throughout hospitalization. Nurse Practitioner note has been reviewed, I agree with a documented findings and plan of care. Patient was seen and examined. Objective - Vital Signs Vital signs: Vital Signs Temp 98.4 F 12/16/18 06:43 Pulse 53 L 12/16/18 06:43 Resp 15 12/16/18 06:43 BP 138/74 12/16/18 06:43 Pulse Ox 97 12/16/18 06:43 Intake & Output 12/15/18 12/16/18 12/16/18 18:59 06:59 18:59 Intake Total 296 173.084 Output Total 250 350 Balance 46 -176.916 Intake: Intake, IV Titration 173.084 Amount Heparin Sod,Pork in 0.45% 173.084 NaCl 25,000 unit In 0.45 % NaCl 1 250ml.bag @ 12 UNITS/KG/HR 7.86 mls/hr IV .Q24H [facility] Rx#: [id number] Oral 296 Output: Urine 250 350 Other: Voiding Method Urinal Urinal Urinal # Voids 2 - Labs CBC & Chem 7: 12/14/18 17:32 12/14/18 17:32 Labs: Abnormal Lab Results - Last 24 Hours (Table) 12/15/18 12/15/18 Range/Units 14:09 20:31 Total Creatine Kinase 27 L 34 L (55-170) U/L
--- NOTE | 2018-12-16 11:15 | P.PN ---
Subjective Progress Note Date: 12/16/18 Principal diagnosis: Left hip fracture Patient was seen and examined. No acute events overnight. Patient denies any left hip pain. He denies any chest pain, shortness of breath or palpitations. No nausea or vomiting. No fever or chills. Looking forward to surgery. Objective - Vital Signs Vital signs: Vital Signs Temp 98.4 F 12/16/18 06:43 Pulse 53 L 12/16/18 06:43 Resp 15 12/16/18 06:43 BP 138/74 12/16/18 06:43 Pulse Ox 97 12/16/18 06:43 Intake & Output 12/15/18 12/16/18 12/16/18 18:59 06:59 18:59 Intake Total 296 173.084 Output Total 250 350 Balance 46 -176.916 Intake: Intake, IV Titration 173.084 Amount Heparin Sod,Pork in 0.45% 173.084 NaCl 25,000 unit In 0.45 % NaCl 1 250ml.bag @ 12 UNITS/KG/HR 7.86 mls/hr IV .Q24H [facility] Rx#: [id number] Oral 296 Output: Urine 250 350 Other: Voiding Method Urinal Urinal Urinal # Voids 2 - Exam General: [non toxic], [no distress], [appears at stated age] Derm: [warm], [dry] Head: [atraumatic], [normocephalic], [symmetric] Eyes: [EOMI], [no lid lag], [anicteric sclera] Mouth: [no lip lesion], [mucus membranes moist] Cardiovascular: [S1S2 reg], [systolic murmur], [positive posterior tibial pulse bilateral], Lungs: [Decreased breath sounds bilateral], [no rhonchi, no rales] , [no accessory muscle use] Abdominal: [soft], [ nontender to palpation], [no guarding], [no appreciable organomegaly] Ext: [no gross muscle atrophy], [no edema], [no contractures], [limited range of motion in the left hip due to pain] Neuro: [no focal neuro deficits] Psych: [Alert], [oriented], [appropriate affect] - Labs CBC & Chem 7: 12/14/18 17:32 12/14/18 17:32 Labs: Abnormal Lab Results - Last 24 Hours (Table) 12/15/18 12/15/18 Range/Units 14:09 20:31 Total Creatine Kinase 27 L 34 L (55-170) U/L Assessment and Plan Assessment: Assessment and plan Acute left hip fracture 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 Plans: Pain control with Tylenol, [place] or Dilaudid as needed. Cleared for surgery by cardiology. Plans for OR later today. Follow PT and OT recommendations. Social work for placement. Echocardiogram shows EF 45-50% with hypokinetic wall motion. Per cardiology report, apparent normal stress last month. Plans: Cleared by cardiology for surgery. Follow cardiology recommendations. Plans: Discontinue heparin drip 2-4 hours prior to surgery. Resume Eliquis postsurgery. Follow hematology recommendations. [OR today. Follow orthopedic surgery recommendations. Will need PT and OT evaluation. Social work on board for placement.]
[2018-12-16] MEDS ORDERED: IV FLUID CONTINUATION 300 ML IV ONE (16:36)
[2018-12-16] MEDS ORDERED: LACTATED RINGERS 1,000 ML IV ONE (16:50)
[2018-12-16] MEDS ORDERED: LIDOCAINE 1% 20 ML VIAL (10MG/ML) FOR IV START INTRADERMA ONE (16:50)
[2018-12-16] MEDS ORDERED: HYDROCORTISONE SUCCINATE 100 MG/2 ML VIAL IV ONE (17:00)
[2018-12-16] MEDS ORDERED: fentaNYL (PF) 50 MCG/ML 2 ML AMP ONE (17:16)
[2018-12-16] MEDS ORDERED: NEOSTIGMINE 1 MG/ML 10 ML VIAL ONE (17:16)
[2018-12-16] MEDS ORDERED: PROPOFOL 10 MG/ML 20 ML VIAL IV ONE (17:16)
[2018-12-16] MEDS ORDERED: ONDANSETRON 4 MG/2 ML VIAL ONE (17:16)
[2018-12-16] MEDS ORDERED: ROCURONIUM BROMIDE 10 MG/ML 10 ML VIAL IV ONE (17:16)
[2018-12-16] MEDS ORDERED: GLYCOPYRROLATE 0.2 MG/ML 2 ML VIAL ONE (17:16)
[2018-12-16] MEDS ORDERED: LIDOCAINE 1% INJ 10MG/ML (20 ML MDV) ONE (17:16)
[2018-12-16] MEDS ORDERED: DEXAMETHASONE SOD PHOS (MDV) 100 MG/10 ML VIAL ONE (17:16)
[2018-12-16] MEDS ORDERED: SUCCINYLCHOLINE CHLORIDE 100 MG/5 ML SYR IV ONE (17:16)
[2018-12-16] MEDS ORDERED: SODIUM CHLORIDE 0.9% 50 ML with ceFAZolin 2,000 MG IV ONE ×2 (17:35)
--- NOTE | 2018-12-16 18:08 | P.OP ---
Date of Procedure: 12/16/18 Preoperative Diagnosis: Subcapital fracture left hip Postoperative Diagnosis: Subcapital fracture left hip Procedure(s) Performed: Left hip hemiarthroplasty Implants: Shah and nephew Polarstem size 6 standard Shah & Nephew tandem unipolar, 51 mm Shah & Nephew tandem unipolar 12/14 taper sleeve, +0 mm All components were press-fit. Anesthesia: spinal Surgeon: Mauriec Jc Weight Checker #1: Yael Morillo Estimated Blood Loss (ml): 100 Pathology: other (Femoral head) Condition: stable Disposition: PACU Indications for Procedure: This is a 73 old gentleman that sustained a fall at home and x-rays demonstrated a subcapital fracture of his left hip. After discussing the surgical nonsurgical treatment options with him and his family at length, I recommended a left hip hemiarthroplasty. Informed consent was obtained. Operative Findings: The operative findings are consistent with a subcapital fracture of the left hip Description of Procedure: Patient was seen and evaluated in the preoperative area, consent was reviewed and the operative site was marked with a skin marker. Patient was then brought to the operating room and given 2 g of Ancef intravenously. A spinal anesthetic was administered by the anesthesia department. Patient was then placed in a lateral decubitus position and held with a [place] hip positioner. The bony prominences were well-padded and an axillary roll was placed. The hip was then prepped and draped in the usual sterile fashion. A universal timeout was then performed which confirmed the patient's name, surgical site, ALLERGIES, and procedure. A standard anterolateral approach the hip was performed. Skin and subcutaneous tissues were sharply incised with an incision centered over the tip of the greater trochanter. The incision was carefully dissected down to the fascia. The fascia was then split in line with skin incision and a Charnley retractor was gently placed. The abductors were then identified, and the anterior one third of the abductors were released off the trochanter and one large sleeve. The fracture hematoma was evacuated and the proximal femur was exposed by externally rotating the femur. The fracture site was readily visualized. Next, using an osteotomy guide, the proximal femur was osteotomized at the appropriate level of the above the lesser trochanter. This bone was then removed. Attention was then turned to the femoral head. Using a corkscrew, the femoral head was removed from the acetabulum without incident. The acetabulum was inspected, and found to have no significant arthrosis. Femoral head was then measured. Attention was then redirected to the femur. Proximal femur was re-exposed and a box osteotome was used to lateralize the proximal femur. A hand shoes sewer was then used to locate the femoral canal. Sequential broaching was then performed to the appropriate size. The calcar was then planed and trial head and neck were placed. The hip was then gently reduced. Leg lengths were checked and found to be equal. Hip was then taken through a full range of motion was stable throughout. The hip was then gently dislocated with the aid of a bone hook. T he trial head and neck were then removed. The femoral broach was then inspected and found to have a secure fit. The broach was then removed. The hip was then copiously irrigated with antibiotic solution with a pulse lavage. Components were then opened and the femoral stem was then impacted into the proximal femur. The trunnion was cleaned and dried, and the femoral head and neck were then imp acted. Hip was again gently reduced. Again leg lengths were checked and found to be equal, and the hip was taken through a full range of motion and found to be stable. The hip was again irrigated with pulsatile lavage, then followed by the Irrrisept solution. The abductors were then repaired through drill holes to the bone to the greater trochanter, utilizing #5 Ethibond suture. Next the fascia was repaired with #2 strata fix suture. The subcutaneous tissue was then repaired with 3-0 Vicryl. The subcuticular tissue was then repaired with 3-0 strata fix suture. Skin was then closed with Dermabond tape. A sterile dressing was then applied and the patient was transported to the recovery room in stable condition. Weight Checker JAYRO Snowden was required due to the complexity of surgery the need for skilled surgical supply assistant. She assisted with positioning the patient, draping the patient, retraction during the surgery, and closure of the wound.
[2018-12-16] MEDS ORDERED: MAGNESIUM HYDROXIDE 2,400 MG/10 ML CUP PO PRN (18:33)
[2018-12-16] MEDS ORDERED: HYDROmorphone 0.5 MG/0.5 ML SYRINGE IVP PRN ×3 (18:33)
[2018-12-16] MEDS ORDERED: NALOXONE 0.4 MG/ML 1 ML VIAL IV PRN (18:33)
[2018-12-16] MEDS ORDERED: HYDROmorphone 1 MG/ML 1 ML SYRINGE IVP ONE ×2 (18:38→18:51)
--- NOTE | 2018-12-16 19:22 | XR ---
EXAMINATION TYPE: XR Hip Limited LT DATE OF EXAM: 12/16/2018 COMPARISON: Yesterday HISTORY: Hip fracture postop TECHNIQUE: Single view FINDINGS: There is left hip prosthesis. Components are in anatomic position. IMPRESSION: No complicating process seen.
[2018-12-16] MEDS: ATORVASTATIN 40 MG TAB PO SCH (19:44)
[2018-12-16] MEDS: TAMSULOSIN 0.4 MG CAP.ER.24H PO SCH (19:45)
[2018-12-16] MEDS: MELATONIN 3 MG TABLET PO SCH (19:47)
[2018-12-16] MEDS: SENNOSIDES-DOCUSATE SODIUM 1 EACH TAB PO SCH (19:48)
[2018-12-16 21:38] LABS: Basophils % (A) 0 %; Eosinophils % (A) 0 %; HCT 37.4 % (39.0-53.0); HGB 12.4 gm/dL (13.0-17.5); Lymphocytes # (A) 0.3 k/uL (1.0-4.8); Lymphocytes % (A) 3 %; MCH 33.1 pg (25.0-35.0); MCHC 33.3 g/dL (31.0-37.0); MCV 99.6 fL (80.0-100.0); Mean Platelet Volume 7.4; Monocytes # (A) 0.1 k/uL (0-1.0); Monocytes % (A) 1 %; Neutrophils # (A) 9.7 k/uL (1.3-7.7); Neutrophils % (A) 95 %; Platelet Count 105 k/uL (150-450); RBC 3.75 m/uL (4.30-5.90); RDW 14.4 % (11.5-15.5); WBC 10.1 k/uL (3.8-10.6)
[2018-12-17] MEDS: CARBIDOPA-LEVODOPA 25-100 MG 1 EACH TAB PO SCH ×4 (05:09→15:09)
[2018-12-17] MEDS: CARBIDOPA-LEVODOPA ER 50-200MG 1 EACH TABLET.ER PO SCH ×2 (05:09→17:09)
[2018-12-17] MEDS: LISINOPRIL 20 MG TAB PO SCH (05:10)
[2018-12-17] MEDS: GLYCOPYRROLATE 1 MG TAB PO SCH (05:10)
[2018-12-17] MEDS: ENTACAPONE 200 MG TAB PO SCH ×6 (05:11→21:27)
[2018-12-17] MEDS: PRAMIPEXOLE 0.5 MG TAB PO SCH ×6 (05:12→21:28)
[2018-12-17] MEDS: RIVASTIGMINE TARTRATE 1.5 MG PO SCH ×2 (05:13→17:08)
[2018-12-17] MEDS: ISOSORBIDE MONONITRATE ER 30 MG TAB.ER.24H PO SCH (05:19)
[2018-12-17] MEDS: METOPROLOL SUCCINATE (ER) 25 MG TAB.ER.24H PO SCH (05:19)
[2018-12-17] MEDS: APIXABAN 5 MG TAB PO SCH ×2 (07:21→21:27)
[2018-12-17] MEDS: SODIUM CHLORIDE 0.9% 1,000 ML IV SCH ×2 (08:41→13:08)
[2018-12-17] MEDS: HYDROcodone/APAP 5-325MG 1 EACH TAB PO PRN ×2 (09:26→15:08)
--- NOTE | 2018-12-17 12:25 | P.PN ---
Subjective Progress Note Date: 12/17/18 Principal diagnosis: Left hip fracture Patient was seen and examined. No acute events overnight. Patient denies any left hip pain. He denies any chest pain, shortness of breath or palpitations. No nausea or vomiting. No fever or chills. at bedside. Objective - Vital Signs Vital signs: Vital Signs Temp 98.9 F 12/17/18 06:54 Pulse 56 L 12/17/18 06:54 Resp 15 12/17/18 06:54 BP 141/41 12/17/18 06:54 Pulse Ox 100 12/17/18 06:54 Intake & Output 12/16/18 12/17/18 12/17/18 18:59 06:59 18:59 Intake Total 550 780 280 Output Total 650 950 Balance -100 -170 280 Intake: IV 550 Intake, IV Titration 780 100 Amount Sodium Chloride 0.9% 1, 780 000 ml @ 65 mls/hr IV . [id number] [facility] Rx#:[id number] ceFAZolin 2 gm In Sodium 100 Chloride 0.9% 50 ml @ 100 mls/hr IVPB Q8HR [facility] Rx# :[id number] Oral 180 Output: Urine 550 950 Estimated Blood Loss 100 Other: Voiding Method Urinal Indwelling Catheter Indwelling Catheter - Exam General: [non toxic], [no distress], [appears at stated age] Derm: [warm], [dry] Head: [atraumatic], [normocephalic], [symmetric] Eyes: [EOMI], [no lid lag], [anicteric sclera] Mouth: [no lip lesion], [mucus membranes moist] Cardiovascular: [S1S2 reg], [systolic murmur], [positive posterior tibial pulse bilateral], Lungs: [Decreased breath sounds bilateral], [no rhonchi, no rales] , [no a ccessory muscle use] Abdominal: [soft], [ nontender to palpation], [no guarding], [no appreciable or ganomegaly] Ext: [no gross muscle atrophy], [no edema], [no contractures], [limited range of motion in the left hip due to pain, dressing clean dry and intact] Neuro: [no focal neuro deficits] Psych: [Alert], [oriented], [appropriate affect] - Labs CBC & Chem 7: 12/16/18 21:21 12/14/18 17:32 Labs: Abnormal Lab Results - Last 24 Hours (Table) 12/16/18 Range/Units 21:21 RBC 3.75 L (4.30-5.90) m/uL Hgb 12.4 L (13.0-17.5) gm/dL Hct 37.4 L (39.0-53.0) % Plt Count 105 L (150-450) k/uL Neutrophils # 9.7 H (1.3-7.7) k/uL Lymphocytes # 0.3 L (1.0-4.8) k/uL Assessment and Plan Assessment: Assessment and plan Acute left hip fracture Anemia from acute blood loss 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 Plans: Pain control with Tylenol, [place] or Dilaudid as needed. Cleared for surgery by cardiology. POD 1 after left hip hemiarthroplasty. Follow PT and OT recommendations. Social work for placement. Hemoglobin 12.4. Likely acute blood loss from surgery. Plans: Daily CBC. Transfuse if hemoglobin less than 7. Echocardiogram shows EF 45-50% with hypokinetic wall motion. Per cardiology report, apparent normal stress last month. Plans: Cleared by cardiology for surgery. Follow cardiology recommendations. Plans: Continue Eliquis postsurgery. Follow hematology recommendations. [POD 1 today. Plans for rehab. Will need PT and OT evaluation. Social work on board for placement.]
--- NOTE | 2018-12-17 14:04 | P.PN ---
Subjective Progress Note Date: 12/17/18 This is a 72-year-old male who is status post left hip hemiarthroplasty. This is postoperative day #1. Patient is seen and evaluated at bedside with Dr. Maurice Jc. Patient states that he has been working with physical therapy and his pain in the left hip is well controlled. Patient denies any new symptoms or complaints today. Patient denies any fever/chills, numbness, weakness, tingling, abdominal pain, shortness of breath or chest pain. Objective - Vital Signs Vital signs: Vital Signs Temp 98.9 F 12/17/18 06:54 Pulse 56 L 12/17/18 06:54 Resp 15 12/17/18 06:54 BP 141/41 12/17/18 06:54 Pulse Ox 100 12/17/18 06:54 Intake & Output 12/16/18 12/17/18 12/17/18 18:59 06:59 18:59 Intake Total 550 780 280 Output Total 650 950 Balance -100 -170 280 Intake: IV 550 Intake, IV Titration 780 100 Amount Sodium Chloride 0.9% 1, 780 000 ml @ 65 mls/hr IV . [id number] [facility] Rx#:[id number] ceFAZolin 2 gm In Sodium 100 Chloride 0.9% 50 ml @ 100 mls/hr IVPB Q8HR [facility] Rx# :[id number] Oral 180 Output: Urine 550 950 Estimated Blood Loss 100 Other: Voiding Method Urinal Indwelling Catheter Indwelling Catheter - Exam Vital signs are stable. Patient is in no acute distress and is alert and oriented 3. Calf is soft and nontender to palpation. Dressing is clean, dry, and intact. Patient has full foot and ankle motion without pain or difficulty. Neurovascular status and circulatory status are intact. - Labs CBC & Chem 7: 12/16/18 21:21 12/14/18 17:32 Labs: Abnormal Lab Results - Last 24 Hours (Table) 12/16/18 Range/Units 21:21 RBC 3.75 L (4.30-5.90) m/uL Hgb 12.4 L (13.0-17.5) gm/dL Hct 37.4 L (39.0-53.0) % Plt Count 105 L (150-450) k/uL Neutrophils # 9.7 H (1.3-7.7) k/uL Lymphocytes # 0.3 L (1.0-4.8) k/uL Assessment and Plan (1) Closed left hip fracture Current Visit: Yes Status: Acute Code(s): S72.002A - FRACTURE OF UNSP PART OF NECK OF LEFT FEMUR, INIT SNOMED Code(s): 862546512 (2) Factor V Leiden Current Visit: Yes Status: Acute Code(s): D68.51 - ACTIVATED PROTEIN C RESISTANCE SNOMED Code(s): 799409911 (3) Parkinsons disease Current Visit: Yes Status: Acute Code(s): G20 - PARKINSON'S DISEASE SNOMED Code(s): 39230988 Plan: Continue routine postop care and pain control. Continue hip precautions with abductor pillow for 6 weeks postoperatively. Continue anticoagulation with Eliquis. Appreciate input from hematology. Weightbearing as tolerated with a walker. Leave dressing in place for 10 days. Appreciate input from medicine and cardiology. Likely discharge to rehab in the next 24-48 hours.
[2018-12-17] MEDS: ATORVASTATIN 40 MG TAB PO SCH (17:07)
[2018-12-17] MEDS: MELATONIN 3 MG TABLET PO SCH (21:27)
[2018-12-17] MEDS: TAMSULOSIN 0.4 MG CAP.ER.24H PO SCH (21:28)
[2018-12-17] MEDS: SENNOSIDES-DOCUSATE SODIUM 1 EACH TAB PO SCH (21:28)
[2018-12-18] MEDS ORDERED: PRAMIPEXOLE 0.5 MG TAB ONE (00:50)
[2018-12-18] MEDS ORDERED: METOPROLOL SUCCINATE (ER) 25 MG TAB.ER.24H PO ONE (00:50)
[2018-12-18] MEDS ORDERED: ISOSORBIDE MONONITRATE ER 30 MG TAB.ER.24H PO ONE (00:50)
[2018-12-18] MEDS ORDERED: ENTACAPONE 200 MG TAB ONE (00:50)
[2018-12-18] MEDS ORDERED: CARBIDOPA-LEVODOPA 25-100 MG 1 EACH TAB ONE (00:50)
[2018-12-18] MEDS ORDERED: HYDROcodone/APAP 5-325MG 1 EACH TAB ONE (00:50)
[2018-12-18] MEDS ORDERED: LISINOPRIL 20 MG TAB ONE (00:50)
[2018-12-18] MEDS ORDERED: CARBIDOPA-LEVODOPA ER 50-200MG 1 EACH TABLET.ER PO ONE (00:50)
[2018-12-18] MEDS ORDERED: GLYCOPYRROLATE 1 MG TAB ONE (00:50)
[2018-12-18 07:46] VITALS: PULSE 61; RESP 16; TEMP 98.1
[2018-12-18] MEDS: ENTACAPONE 200 MG TAB PO SCH ×4 (08:00→16:16)
[2018-12-18] MEDS: CARBIDOPA-LEVODOPA ER 50-200MG 1 EACH TABLET.ER PO SCH (08:00)
[2018-12-18] MEDS: SODIUM CHLORIDE 0.9% 1,000 ML IV SCH ×2 (08:00→12:27)
[2018-12-18] MEDS: CARBIDOPA-LEVODOPA 25-100 MG 1 EACH TAB PO SCH ×4 (08:00→16:15)
[2018-12-18] MEDS: GLYCOPYRROLATE 1 MG TAB PO SCH (08:01)
[2018-12-18] MEDS: ISOSORBIDE MONONITRATE ER 30 MG TAB.ER.24H PO SCH (08:01)
[2018-12-18] MEDS: LISINOPRIL 20 MG TAB PO SCH (08:01)
[2018-12-18] MEDS: PRAMIPEXOLE 0.5 MG TAB PO SCH ×4 (08:01→16:16)
[2018-12-18] MEDS: METOPROLOL SUCCINATE (ER) 25 MG TAB.ER.24H PO SCH (08:01)
[2018-12-18] MEDS: RIVASTIGMINE TARTRATE 1.5 MG PO SCH (08:01)
[2018-12-18] MEDS: APIXABAN 5 MG TAB PO SCH (08:46)
[2018-12-18] MEDS: HYDROcodone/APAP 5-325MG 1 EACH TAB PO PRN ×3 (08:46→16:15)
--- NOTE | 2018-12-18 08:52 | P.PN ---
Subjective Progress Note Date: 12/18/18 This is a 72-year-old male who is status post left hip hemiarthroplasty. This is postoperative day #2. Patient is seen and evaluated at bedside with Dr. Maurice Jc. Patient states that his pain in the left hip is well controlled. Patient denies any new symptoms or complaints today. Patient denies any fever/chills, numbness, weakness, tingling, abdominal pain, shortness of breath or chest pain. Objective - Vital Signs Vital signs: Vital Signs Temp 98.1 F 12/18/18 07:44 Pulse 61 12/18/18 07:44 Resp 16 12/18/18 07:44 BP 145/65 12/18/18 07:44 Pulse Ox 94 L 12/18/18 07:44 Intake & Output 12/17/18 12/18/18 12/18/18 18:59 06:59 18:59 Intake Total 640 Output Total 400 100 Balance 240 -100 Intake: Intake, IV Titration 100 Amount ceFAZolin 2 gm In Sodium 100 Chloride 0.9% 50 ml @ 100 mls/hr IVPB Q8HR [facility] Rx# :[id number] Oral 540 Output: Urine 400 100 Uretheral (Villegas) 400 Other: Voiding Method Indwelling Catheter # Voids 3 - Exam Vital signs are stable. Patient is in no acute distress and is alert and oriented 3. Calf is soft and nontender to palpation. Dressing is clean, dry, and intact. Patient has full foot and ankle motion without pain or difficulty. Neurovascular status and circulatory status are intact. - Labs CBC & Chem 7: 12/16/18 21:21 12/14/18 17:32 Assessment and Plan (1) Closed left hip fracture Current Visit: Yes Status: Acute Code(s): S72.002A - FRACTURE OF UNSP PART OF NECK OF LEFT FEMUR, INIT SNOMED Code(s): 851259285 (2) Factor V Leiden Current Visit: Yes Status: Acute Code(s): D68.51 - ACTIVATED PROTEIN C RESISTANCE SNOMED Code(s): 875928724 (3) Parkinsons disease Current Visit: Yes Status: Acute Code(s): G20 - PARKINSON'S DISEASE SNOMED Code(s): 07461239 Plan: Continue routine postop care and pain control. Continue hip precautions with abductor pillow for 6 weeks postoperatively. Continue anticoagulation with Eliquis. Appreciate input from hematology. Weightbearing as tolerated with a walker. Leave dressing in place for 10 days. Appreciate input from medicine and cardiology. Likely discharge to ECF when cleared medically. Patient is stable for discharge to ECF from an orthopedic standpoint.
--- NOTE | 2018-12-18 08:54 | P.DS ---
Providers Date of admission: 12/14/18 16:46 Expected date of discharge: 12/18/18 Attending physician: Maurice Jc Consults: 12/14/18 14:10 Consult Physician Routine Consulting Provider: Dov Rodriguez Consult Reason/Comments: medical clearance. Hip fracture. Factor V leiden Do you want consulting provider notified?: Yes 12/14/18 18:10 Consult Physician Routine Consulting Provider: Simón Mike Consult Reason/Comments: factor iv leiden Do you want consulting provider notified?: Yes 12/14/18 18:30 Consult Physician Routine Consulting Provider: Lemuel Addison Consult Reason/Comments: cardiac clearance for surgery Do you want consulting provider notified?: Yes Primary care physician: Jose Maria Peter - Discharge Diagnosis(es) (1) Closed left hip fracture Current Visit: Yes Status: Acute (2) Factor V Leiden Current Visit: Yes Status: Acute (3) Parkinsons disease Current Visit: Yes Status: Acute Hospital Course: This is a 73-year-old male who sustained a subcapital fracture of the left hip after a fall. After discussion and consideration the patient and his family elect to proceed with left hip hemiarthroplasty. The patient is seen preoperati smithy by Dr. Jc and medically cleared for surgery by internal medicine, cardiology and hematology. Patient was transferred from [facility] and admitted to [facility] on 12/14/2018. Left hip hemiarthroplasty is performed on 12/16/2018. The procedures performed without complication or sequelae. The patient is doing well postoperatively. Labs and vital signs are stable on day of discharge. On day of discharge patient's hip incision is healing well. There is minimal erythema. There is no drainage noted at this time. There is minimal soft tis anna swelling to the hip and thigh. Patient has full foot and ankle motion without difficulty or pain. Calf is soft and nontender to palpation. Neurovascular status to the left lower extremity is intact. Patient is discharged to rehab in good condition. Please see med rec for accurate list of home medications. Plan - Discharge Summary Discharge Rx Participant: Yes New Discharge Prescriptions: New Apixaban [Eliquis] 5 mg PO BID #60 tab HYDROcodone/APAP 5-325MG [[place] 5-325] 1 - 2 tab PO Q6HR PRN #56 tab PRN Reason: Pain Sennosides [Senokot] 1 tab PO BID #60 tablet No Action Atorvastatin [Lipitor] 40 mg PO DAILY Glycopyrrolate [Robinul] 1 mg PO BID Rivastigmine Tartrate [Rivastigmine] 1.5 mg PO BID Apixaban [Eliquis] 5 mg PO BID Carbidopa-Levodopa ER 50-200Mg [Sinemet ER 50-200] 1 tab PO BID Entacapone [Comtan] 200 mg PO Q3HR Isosorbide Mononitrate [Isosorbide Mononitrate ER] 30 mg PO QAM Pramipexole [Mirapex] 0.5 mg PO Q4HR tiZANidine [Zanaflex] 2 mg PO BID@0600,1400 Metoprolol Succinate (ER) [Toprol Xl] 25 mg PO DAILY Tamsulosin HCl [Flomax] 0.4 mg PO DAILY predniSONE See Taper PO DAILY Ramipril 10 mg PO DAILY Discharge Medication List Atorvastatin [Lipitor] 40 mg PO DAILY 02/12/18 [History] Glycopyrrolate [Robinul] 1 mg PO BID 02/12/18 [History] Rivastigmine Tartrate [Rivastigmine] 1.5 mg PO BID 02/20/18 [History] Apixaban [Eliquis] 5 mg PO BID 07/10/18 [History] Carbidopa-Levodopa ER 50-200Mg [Sinemet ER 50-200] 1 tab PO BID 07/10/18 [History] Entacapone [Comtan] 200 mg PO Q3HR 07/10/18 [History] Isosorbide Mononitrate [Isosorbide Mononitrate ER] 30 mg PO QAM 07/10/18 [History] Pramipexole [Mirapex] 0.5 mg PO Q4HR 07/10/18 [History] tiZANidine [Zanaflex] 2 mg PO BID@0600,1400 07/10/18 [History] Metoprolol Succinate (ER) [Toprol Xl] 25 mg PO DAILY 12/14/18 [History] Ramipril 10 mg PO DAILY 12/14/18 [History] Tamsulosin HCl [Flomax] 0.4 mg PO DAILY 12/14/18 [History] predniSONE See Taper PO DAILY 12/14/18 [History] Apixaban [Eliquis] 5 mg PO BID #60 tab 12/17/18 [Rx] HYDROcodone/APAP 5-325MG [[place] 5-325] 1 - 2 tab PO Q6HR PRN #56 tab 12/17/18 [Rx] Sennosides [Senokot] 1 tab PO BID #60 tablet 12/17/18 [Rx] Follow up Appointment(s)/Referral(s): Maurice Jc DO [Doctor of Osteopathic Medicine] - 2 Weeks Activity/Diet/Wound Care/Special Instructions: Weightbearing as tolerated with walker. Leave dressing intact. Dressing may be removed by home care nurse or by patient in 10 days. May shower with dressing on. Continue use of abductor pillow for 6 weeks postoperatively. Recommend use of compression stockings daily for at least 2 weeks during the day to help prevent swelling and blood clots. May remove at night before sleeping. Please follow-up with [facility] in 2 weeks and call with any quest ions or concerns, . Discharge Disposition: TRANSFER TO SNF/ECF
--- NOTE | 2018-12-18 13:19 | CDI ---
Documentation Clarification Form Date: 12/18/2018 1:12:02 PM From: Guerline Mccrary CCS, CCDS Admit Date: 12/14/2018 4:46:00 PM Patient Name: Erin Sullivan Visit Number: [id number] Discharge Date: ATTENTION: The Clinical Documentation Specialists (CDI) and [facility] Coding Staff appreciate your assistance in clarifying documentation. Please respond to the clarification below the line at the bottom and electronically sign. The CDI & [facility] Coding staff will review the response and follow-up if needed. Please note: Queries are made part of the Legal Health Record. If you have any questions, please contact the author of this message via ITS. Dr. Lucien Jernigan: A diagnosis of anemia lacks specificity to accurately reflect your patients severity of condition and clarification is needed. Per 12/17 medical management progress note: "Anemia from acute blood loss." History/Risk Factors: Factor V Leiden, Parkinson's disease, Dementia, DVT x2, Cardiac arrest, Hypertension, Hyperlipidemia, OA. Clinical indicators: Transferred from [facility] for left hip fracture. Status post left hip arthroplasty on 12/16. Hemoglobin: 14.2 on 12/14 - 12.4 on 12/16 Hematocrit: 44.1 on 12/14 - 37.4* on 12/16 Treatment: Daily CBC, po Eliquis, IV Cefazolin, IV Dilaudid. In your professional opinion, please clarify the significance of the patient's blood loss anemia: Acute blood loss anemia - An expected outcome of the patient's procedure, please specify cause if known. - An unexpected outcome of the patient's procedure, please specify cause if known. - An expected outcome of the patient's procedure due to comorbid conditions, please specify: Unable to determine Other, please specify (Last Revision: December 2016) an expected outcome of the patients procedure due to comorbid condition MTDD
[2018-12-18 14:52] VITALS: BP 137/62
--- NOTE | 2018-12-19 00:16 | P.PN ---
Progress Note - Text Progress Note Date: 12/18/18 Interval history: This is a patient who underwent left hip arthroplasty for s fracture left hip. Today-doing better. Sitting up. Tolerating his diet. No nausea vomiting. No chest pain. Did work with therapy. Review of systems: Was done for constitutional, cardiovascular, GI, pulmonary, musculoskeletal. relevant finding as above Current medications reviewed from today's electronic records Physical examination: VITAL SIGNS: 98.1, 61, 16, 145/65, 94% room air GENERAL: Sitting up comfortable. EYES: Pupils equal. Conjunctiva normal. HEENT: External appearance of nose and ears normal, oral cavity grossly normal. NECK: JVD not raised; masses not palpable. HEART: First and second heart sounds are normal; no edema. LUNGS: Respiratory rate normal; clear to auscultation. ABDOMEN: Soft, nontender, liver spleen not palpable, no masses palpable. PSYCH: Alert and oriented x3; mood and affect normal. INVESTIGATIONS, reviewed in the clinical context: White count 10.1 hemoglobin 12.4 platelets 105 Assessment: -Left hip hemiarthroplasty for fracture -Factor V Leiden deficiency, clotting disorder -Chronic congestive heart failure from systolic dysfunction EF 45-50% -Moderate to severe aortic valve sclerosis -Hypothyroid -Primary osteoarthritis -Coronary artery disease with stent -Essential hypertension -Hyperlipidemia -BPH -Paroxysmal atrial fibrillation on long-term anticoagulation -AICD for ischemic cardiomyopathy -Idiopathic Parkinson's disease Plan: Patient is medically stable. Follow with cardiology orders. Care was discussed the patient. Thank you Dr. Jc
== END 2018-12-18 16:54 | DRG 470 ==
LOC: 4SSUR 16:46
PROVIDERS: ADMIT Orthopaedic Surgery; ATTEND Orthopaedic Surgery
PROC: 0SRS0JA Replacement of Left Hip Joint, Femoral Surface with Synthetic Substitute, Uncemented, Open Approach (ICD-10-PCS; principal; 2018-12-16 17:15)
DX: S72.012A Unspecified intracapsular fracture of left femur, initial encounter for closed fracture (principal); I50.22 Chronic systolic (congestive) heart failure; D62 Acute posthemorrhagic anemia; D68.51 Activated protein C resistance; W19.XXXA Unspecified fall, initial encounter; V00.148A Other scooter (nonmotorized) accident, initial encounter; I25.10 Atherosclerotic heart disease of native coronary artery without angina pectoris; I11.0 Hypertensive heart disease with heart failure; F02.80 Dementia in other diseases classified elsewhere, unspecified severity, without behavioral disturbance, psychotic disturbance, mood disturbance, and anxiety; G20 Parkinson's disease; M19.90 Unspecified osteoarthritis, unspecified site; E78.5 Hyperlipidemia, unspecified; Z95.5 Presence of coronary angioplasty implant and graft; Z95.810 Presence of automatic (implantable) cardiac defibrillator; Z79.899 Other long term (current) drug therapy; Z79.01 Long term (current) use of anticoagulants; Z79.52 Long term (current) use of systemic steroids; Z86.74 Personal history of sudden cardiac arrest; Z85.828 Personal history of other malignant neoplasm of skin; Z86.718 Personal history of other venous thrombosis and embolism; E03.9 Hypothyroidism, unspecified; I25.2 Old myocardial infarction; I25.5 Ischemic cardiomyopathy; I35.8 Other nonrheumatic aortic valve disorders; N40.0 Benign prostatic hyperplasia without lower urinary tract symptoms
CPT/HCPCS: 71045; 73501; 73502; 80048; 81003; 82550; 82553; 84484; 85025; 85610; 85730; 86850; 86900; 86901; 88305; 88311; 93005; 93306